=== PATIENT | female | born 1985 | race Caucasian/White ===

== ENCOUNTER 2019-07-02 15:07 | Emergency (ER) | payer MEDICAID ==
[~2019-07-02] VITALS: Ht 182.9 cm; Wt 70.3 kg
--- NOTE | 2019-07-02 15:14 | NUR ---
PT IS IN ROOM #2B.
--- NOTE | 2019-07-02 15:32 | NUR ---
DR FRANKS EVALUATED THE PT.
[2019-07-02] MEDS ORDERED: IBUPROFEN 600 MG TABLET PO ONE (16:00)
[2019-07-02] MEDS ORDERED: IBUPROFEN 600 MG TABLET ONE (16:07)
--- NOTE | 2019-07-02 16:23 | NUR ---
pt was d/c'D to home. d/c instructions given to the pt by dr Jones.
[2019-07-02 16:25] VITALS: BP 135/77
== END 2019-07-02 16:26 | disposition home or self-care (01) ==
LOC: EDBD 15:09 → ER 15:09
DX: S99.911A Unspecified injury of right ankle, initial encounter (principal); W22.8XXA Striking against or struck by other objects, initial encounter; Y92.59 Other trade areas as the place of occurrence of the external cause; G89.29 Other chronic pain; Y99.9 Unspecified external cause status; M25.571 Pain in right ankle and joints of right foot; R26.2 Difficulty in walking, not elsewhere classified
CPT/HCPCS: 73610; A4663